=== PATIENT | female | born 1960 | race Two or more races ===

== ENCOUNTER 2020-05-23 19:50 | Emergency (ER) | payer MEDICARE, OTHER ==
[2020-05-23 20:05] LABS: BILIRUBIN,URINE NEGATIVE (NEGATIVE); GLUCOSE, URINE (UA) 100 mg/dL (NEGATIVE); KETONES,URINE (UA) NEGATIVE (NEGATIVE); LEUKOCYTE ESTERASE, URINE NEGATIVE (NEGATIVE); NITRITE,URINE NEGATIVE (NEGATIVE); OCCULT BLOOD,URINE NEGATIVE (NEGATIVE); PROTEIN,URINE NEGATIVE (NEGATIVE); UROBILINOGEN,URINE 0.2 (NORMAL) E.U./dL (NORMAL)
[2020-05-23] MEDS ORDERED: HYDROmorphone 1 MG/ML CARPUJECT IVP STA (20:05)
[2020-05-23] MEDS ORDERED: ONDANSETRON 4 MG/2 ML VIAL IVP STA (20:05)
[2020-05-23 20:09] LABS: CLARITY,URINE CLEAR (CLEAR)
[2020-05-23 20:19] LABS: BASOPHILS # (AUTO) 0.1 10^3/uL (0.0-0.1); BASOPHILS % (AUTO) 0.9 %; EOSINOPHILS # (AUTO) 0.3 10^3/uL (0.0-0.7); EOSINOPHILS % (AUTO) 3.1 %; HCT - HEMATOCRIT 39.6 % (37.0-47.0); HGB - HEMOGLOBIN 12.8 g/dL (12.0-16.0); LYMPHOCYTES # (AUTO) 2.9 10^3/uL (1.5-3.5); LYMPHOCYTES % (AUTO) 31.4 %; MEAN CORPUSCULAR HEMOGLOBIN 26.2 pg (27.0-31.0); MEAN CORPUSCULAR HGB CONC 32.3 g/dL (32.0-36.0); MEAN PLATELET VOLUME 10.1 fL (7.9-10.8); MONOCYTES # (AUTO) 0.7 10^3/uL (0.0-1.0); NEUTROPHILS # (AUTO) 5.1 10^3/uL (1.5-6.6); NEUTROPHILS % (AUTO) 56.2 %; PLT - PLATELET COUNT 228 10^3/uL (130-450); RED BLOOD COUNT 4.89 10^6/uL (4.20-5.40); RED CELL DISTRIBUTION WIDTH 14.2 % (12.0-15.0); WHITE BLOOD COUNT 9.1 x10^3/uL (4.8-10.8)
[2020-05-23 20:34] LABS: ALBUMIN 4.6 g/dL (3.2-5.5); ALBUMIN/GLOBULIN RATIO 1.5 (1.0-2.2); BILIRUBIN,TOTAL 1.1 mg/dL (0.2-1.0); CALCIUM 9.4 mg/dL (8.5-10.3); CREATININE 0.6 mg/dL (0.4-1.0); POTASSIUM 3.7 mmol/L (3.5-5.0); TOTAL PROTEIN 7.7 g/dL (6.7-8.2)
--- NOTE | 2020-05-23 20:45 | ED Physician Documentation ---
PD HPI ABD PAIN - Stated complaint Stated Complaint: RT FLANK PX - Chief complaint Chief Complaint: Abd Pain - History obtained from History obtained from: Patient, Family - History of Present Illness Timing - onset: How many weeks ago (1) Timing - duration: Weeks (1) Timing - details: Gradual onset Pain level max: 9 Pain level now: 8 Quality: Aching, Pain Location: RUQ Radiation: Right flank Improved by: No: Eating, Laying still, Vomiting, BM, Position, Meds Worsened by: No: Eating, Moving, Breathing, Position, Palpation Associated symptoms: Nausea. No: Fever, Vomiting, Hematemesis, Diarrhea, Constipation, Melena, Hematochezia, Dysuria, Hematuria Similar symptoms before: Has not had sx before Recently seen: Not recently seen - Additional information Additional information: 59-year-old female presents with right flank and right upper quadrant abdominal pain intermittently for the past week, more constant tonight. Nothing seems to make it better or worse. Radiates slightly to the right flank. No fever, occasional nausea no vomiting no diarrhea. No constipation. No urinary symptoms. Has not had similar symptoms previously. No history of gallbladder issues Review of Systems Constitutional: denies: Fever, Chills Nose: denies: Rhinorrhea / runny nose, Congestion Throat: denies: Sore throat Cardiac: denies: Chest pain / pressure Respiratory: denies: Cough GI: denies: Vomiting, Diarrhea : denies: Dysuria, Frequency, Hesitancy Skin: denies: Rash Musculoskeletal: denies: Neck pain, Back pain Neurologic: denies: Headache PD PAST MEDICAL HISTORY - Past Medical History Past Medical History: Yes Cardiovascular: Hypertension, High cholesterol Neuro: Other Endocrine/Autoimmune: Type 2 diabetes GI: Diverticulitis : None HEENT: None Psych: None Musculoskeletal: None Other Past Medical History: Gregory's Palsy - Past Surgical History Past Surgical History: Yes General: Appendectomy Ortho: 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 - Present Medications Home Medications: Ambulatory Orders Medication Instructions Recorded Confirmed Atorvastatin [Lipitor] 20 mg PO DAILY 05/23/20 05/23/20 Cholecalciferol [Vitamin D3] 5,000 units PO DAILY 05/23/20 05/23/20 Glimepiride [Amaryl] 2 mg PO DAILY 05/23/20 05/23/20 Metformin HCl [Metformin ER 1,000 mg PO BID 05/23/20 05/23/20 Osmotic] Ondansetron Odt [Zofran] 4 mg TL Q6H PRN #10 tablet 05/23/20 oxyCODONE [Roxicodone] 5 - 10 mg PO Q6H PRN #14 tablet 05/23/20 predniSONE [Deltasone] 10 mg PO [id number] #42 tab 05/23/20 - Allergies Allergies/Adverse Reactions: Allergies Allergy/AdvReac Type Severity Reaction Status Date / Time No Known Drug Allergies Allergy Verified 05/23/20 19:58 - Social History Does the pt smoke?: No Smoking Status: Never smoker Does the pt drink ETOH?: Yes Does the pt have substance abuse?: No - Immunizations Immunizations are current?: Yes - POLST Patient has POLST: No PD ED PE NORMAL - Vitals Vital signs reviewed: Yes - General General: Alert and oriented X 3, No acute distress - HEENT HEENT: Moist mucous membranes - Neck Neck: Supple, no meningeal sign - Cardiac Cardiac: RRR, Strong equal pulses - Respiratory Respiratory: No respiratory distress, Clear bilaterally - Abdomen Abdomen: Soft, Non distended, Other (Tender to palpation right upper quadrant. Positive Solis sign) - Back Back: No CVA TTP, No spinal TTP - Derm Derm: Warm and dry - Extremities Extremities: No edema - Neuro Neuro: Alert and oriented X 3 - Psych Psych: Normal mood, Normal affect Results - Vitals Vitals: Vital Signs - 24 hr 05/23/20 05/23/20 19:58 22:15 Temperature 36.7 C Heart Rate 92 97 Respiratory 19 18 Rate Blood Pressure 138/87 H 132/81 H O2 Saturation 98 98 Oxygen O2 Source Room air - Labs Labs: Laboratory Tests 05/23/20 05/23/20 05/23/20 19:57 20:12 20:12 WBC 9.1 RBC 4.89 Hgb 12.8 Hct 39.6 MCV 81.0 MCH 26.2 L MCHC 32.3 RDW 14.2 Plt Count 228 MPV 10.1 Neut # (Auto) 5.1 Lymph # (Auto) 2.9 [place] # (Auto) 0.7 Eos # (Auto) 0.3 Baso # (Auto) 0.1 Absolute Nucleated RBC 0.00 Nucleated RBC % 0.0 Sodium 138 Potassium 3.7 Chloride 99 L Carbon Dioxide 23 Anion Gap 16.0 H BUN 17 Creatinine 0.6 Estimated GFR (MDRD) 102 Glucose 222 H Calcium 9.4 Total Bilirubin 1.1 H AST 55 H ALT 66 H Alkaline Phosphatase 69 Total Protein 7.7 Albumin 4.6 Globulin 3.1 Albumin/Globulin Ratio 1.5 Lipase 29 Urine Color LIGHT YELLOW Urine Clarity CLEAR Urine pH 6.0 Ur Specific [place] <=1.005 Urine Protein NEGATIVE Urine Glucose (UA) 100 H Urine Ketones NEGATIVE Urine Occult Blood NEGATIVE Urine Nitrite NEGATIVE Urine Bilirubin NEGATIVE Urine Urobilinogen 0.2 (NORMAL) Ur Leukocyte Esterase NEGATIVE Ur Microscopic Review NOT INDICATED Urine Culture Comments NOT INDICATED - Rads (name of study) RUQ US Radiology: Prelim report reviewed, EMP read contemporaneously, See rad report (normal gallbladder. fatty liver.) CT abdomen pelvis Radiology: Prelim report reviewed, EMP read contemporaneously, See rad report PD MEDICAL DECISION MAKING - ED course Complexity details: reviewed results, re-evaluated patient, considered differential, d/w patient, d/w family ED course: No acute findings on ultrasound. Does have small subpleural clustered nodule opacities laterally in the right lung, likely a flare of the sarcoidosis. Has had flares in this area before. Pain well controlled. We will place her on steroids and pain medication for home. Patient counseled regarding signs and symptoms for which I believe and urgent re-evaluation would be necessary. Patient with good understanding of and agreement to plan and is comfortable going home at this time This document was made in part using voice recognition software. While efforts are made to proofread this document, sound alike and grammatical errors may occur. IMPRESSION: 1. No definite acute intra-abdominal abnormality to correlate with patient's right-sided pain. 2. Appendix not discretely visualized but no pericecal inflammatory changes are demonstrated to suggest appendicitis. 3. Small subpleural clustered nodular opacities laterally in the right lung base suggestive of a mild infectious or inflammatory process. 4. No nephrolithiasis or hydronephrosis. 5. Small fat-containing ventral abdominal hernias. Departure - Departure Disposition: 01 Home, Self Care Clinical Impression: Flank pain, Sarcoidosis Condition: Good Instructions: Sarcoidosis Pulmonary Follow-Up: your,doctor as needed [Other] Prescriptions: predniSONE [Deltasone] 10 mg PO [id number] #42 tab oxyCODONE [Roxicodone] 5 - 10 mg PO Q6H PRN #14 tablet PRN Reason: flank ain Ondansetron Odt [Zofran] 4 mg TL Q6H PRN #10 tablet PRN Reason: Nausea / Vomiting Comments: Your pain tonight appears to be likely related to a flare of your sarcoidosis. We will place you on a steroid taper, pain medications and antiemetics as needed for home. Return if you worsen. Follow-up with your doctor as needed for further care.
[2020-05-23] MEDS ORDERED: IOPAMIDOL-300 100 ML VIAL ONE (21:12)
--- NOTE | 2020-05-23 21:34 | Ultrasound Report ---
PROCEDURE: Abdomen Limited INDICATIONS: RUQ abd pain TECHNIQUE: Real-time focused scanning was performed of the right upper quadrant, with image documentation. COMPARISON: None. FINDINGS: The liver is increased in echogenicity compatible with fatty infiltration. There is suggestion of nod ularity along the posterior hepatic contour. Gallbladder demonstrates a small amount of biliary sludge without discrete shadowing gallstones. No w all thickening or pericholecystic fluid. No intra or extra hepatic biliary ductal dilatation. The visualized common bile duct measures up to 0 .4 cm. The pancreas was not well visualized sonographically. Right kidney measures 13.1 cm. No hydronephrosis. IMPRESSION: 1. Increased hepatic echogenicity compatible with steatosis. 2. No evidence of cholelithiasis or cholecystitis. Reviewed by: Luther Iqbal MD on 05/23/2020 9:32 PM PDT Approved by: Luther Iqbal MD on 05/23/2020 9:32 PM PDT Station ID: [id number]
[2020-05-23] MEDS ORDERED: IOPAMIDOL-300 100 ML VIAL IVP ONE (21:42)
--- NOTE | 2020-05-23 22:01 | CT Report ---
PROCEDURE: Abdomen/Pelvis W INDICATIONS: R sided abd pain CONTRAST: IV CONTRAST: Isovue 300 ml: 100 PO CONTRAST: *NO PO CONTRAST TECHNIQUE: After the administration of intravenous contrast, 5 mm thick sections acquired from the diaphragms to the symphysis. 5 mm thick coronal and sagittal reformats were acquired. For radiation dose reducti on, the following was used: automated exposure control, adjustment of mA and/or kV according to stacie ent size. COMPARISON: Limited abdominal ultrasound 05/23/2020. FINDINGS: Image quality: Excellent. ABDOMEN: Lung bases: There are small subpleural clustered peripheral nodules laterally in the right lung base . Heart size is normal. Solid organs: Evaluation of the liver demonstrates no focal hepatic lesions. Gallbladder appears wit hin normal limits without calcified gallstones. Biliary system is non dilated. The spleen is normal in size. Pancreas enhances normally without peripancreatic fat stranding or fluid collections. No ad renal nodules. Kidneys demonstrate no hydronephrosis. Peritoneum and bowel: Bowel loops demonstrate normal wall thickness and caliber. The appendix is not discretely visualized and may be surgically absent. No pericecal inflammatory changes to suggest edwin endicitis. There is colonic diverticulosis without acute diverticulitis. No free fluid or air. Nodes and vessels: No retroperitoneal or mesenteric adenopathy by size criteria. Aorta and inferior vena cava are normal in size. Miscellaneous: There are 2 small fat-containing ventral abdominal hernias. PELVIS: Genitourinary: Bladder wall thickness is normal. The uterus and ovaries are surgically absent. Miscellaneous: No inguinal hernias or adenopathy. Bones: No suspicious bony lesions. No vertebral body compression fractures. IMPRESSION: 1. No definite acute intra-abdominal abnormality to correlate with patient's right-sided pain. 2. Appendix not discretely visualized but no pericecal inflammatory changes are demonstrated to sugge st appendicitis. 3. Small subpleural clustered nodular opacities laterally in the right lung base suggestive of a mild infectious or inflammatory process. 4. No nephrolithiasis or hydronephrosis. 5. Small fat-containing ventral abdominal hernias. Reviewed by: Luther Iqbal MD on 05/23/2020 10:00 PM PDT Approved by: Luther Iqbal MD on 05/23/2020 10:00 PM PDT Station ID: [id number]
[2020-05-23 22:15] VITALS: BP 132/81
[2020-05-23] MEDS ORDERED: oxyCODONE 5 MG TABLET PO STA (22:23)
[2020-05-23] MEDS ORDERED: predniSONE 20 MG TABLET PO STA (22:23)
== END 2020-05-23 22:41 | disposition home or self-care (01) ==
LOC: ED 19:50
DX: D86.0 Sarcoidosis of lung (principal); R10.11 Right upper quadrant pain; R11.0 Nausea; K43.9 Ventral hernia without obstruction or gangrene; K76.0 Fatty (change of) liver, not elsewhere classified; I10 Essential (primary) hypertension; E11.9 Type 2 diabetes mellitus without complications; Z79.84 Long term (current) use of oral hypoglycemic drugs
CPT/HCPCS: 36415; 74177; 76705; 80053; 81003; 83690; 85025; 96374; 96375; 99284; A9270; J1170; J7512; Q9967; 81001; 87086